=== PATIENT | female | born 1985 | race Caucasian/White ===

== ENCOUNTER → 2017-10-17 | Outpatient (CLI) | payer BC ==
[~2017-10-17] MED LIST: PRENTAB26 PO; PROG1INJ
== END | disposition home or self-care (01) ==
LOC: C.LAB1850 14:47
PROVIDERS: ATTEND Obstetrics & Gynecology
DX: O20.0 Threatened abortion (principal); Z3A.00 Weeks of gestation of pregnancy not specified

== ENCOUNTER → 2017-10-24 | Outpatient (CLI) | payer BC | END | disposition home or self-care (01) | LOC: C.LAB1850 09:36 | PROVIDERS: ATTEND Obstetrics & Gynecology | DX: O20.0 Threatened abortion (principal) ==

== ENCOUNTER → 2017-10-30 | Outpatient (CLI) | payer BC | END | disposition home or self-care (01) | LOC: C.LAB 12:59 | PROVIDERS: ATTEND Obstetrics & Gynecology | DX: O20.0 Threatened abortion (principal) ==

== ENCOUNTER → 2017-12-07 | Outpatient (CLI) | payer BC | END | disposition home or self-care (01) | LOC: C.PAPS 15:47 | PROVIDERS: ATTEND Obstetrics & Gynecology | DX: Z01.419 Encounter for gynecological examination (general) (routine) without abnormal findings (principal) ==

== ENCOUNTER → 2018-03-21 | Outpatient (CLI) | payer BC | END | disposition home or self-care (01) | LOC: C.LABSPEC 13:09 | PROVIDERS: ATTEND Obstetrics & Gynecology | DX: O09.211 Supervision of pregnancy with history of pre-term labor, first trimester (principal); Z3A.00 Weeks of gestation of pregnancy not specified ==

== ENCOUNTER → 2018-03-22 | Outpatient (CLI) | payer BC ==
[2018-03-22 12:21] LABS: BASO % 0.2 %; BASO ABS # 0.02 K/uL (0-0.2); EOS ABS # 0.08 K/uL (0-0.5); HEMATOCRIT 38.4 % (37-47); HEMOGLOBIN 12.6 g/dL (12.0-16.0); IG# 0.02 K/uL (0.00-0.02); LYMPH % 27.4 %; MEAN CELL VOLUME 86.7 fL (80-100); MEAN CORPUSCULAR HEMOGLOBIN 28.4 pg (25-34); MEAN CORPUSCULAR HGB CONC 32.8 g/dl (32-36); MEAN PLATELET VOLUME 9.9 fL (7.4-10.4); MONO % 7.2 %; MONO ABS # 0.58 K/uL (0.11-0.59); NEUT ABS # 5.12 K/uL (1.4-6.5); PLATELET COUNT 249 K/uL (130-400); RED CELL DISTRIBUTION WIDTH CV 14.4 % (11.5-14.5); RED CELL DISTRIBUTION WIDTH SD 45.6 fL (36.4-46.3); WHITE BLOOD COUNT 8.02 K/uL (4.8-10.8)
== END | disposition home or self-care (01) ==
LOC: C.LAB1850 11:36
PROVIDERS: ATTEND Obstetrics & Gynecology
DX: O09.211 Supervision of pregnancy with history of pre-term labor, first trimester (principal)

== ENCOUNTER 2018-04-09 | Emergency (ER) | payer BC ==
[~2018-04-09] VITALS: Ht 165.1 cm; Wt 100.3 kg
[2018-04-09 00:03] VITALS: TEMP 36.5; Ht 165.1 cm; Wt 100.3 kg
[2018-04-09] MEDS ORDERED: KETOROLAC TROMETHAMINE 30 MG/ML VIAL IV STA (00:28)
[2018-04-09 00:52] LABS: BASO % 0.2 %; BASO ABS # 0.02 K/uL (0-0.2); EOS % 0.7 %; EOS ABS # 0.08 K/uL (0-0.5); HEMATOCRIT 35.7 % (37-47); HEMOGLOBIN 12.1 g/dL (12.0-16.0); IG# 0.03 K/uL (0.00-0.02); LYMPH % 23.9 %; LYMPH ABS # 2.58 K/uL (1.2-3.4); MEAN CELL VOLUME 85.6 fL (80-100); MEAN CORPUSCULAR HGB CONC 33.9 g/dl (32-36); MEAN PLATELET VOLUME 9.6 fL (7.4-10.4); MONO % 5.1 %; MONO ABS # 0.55 K/uL (0.11-0.59); NEUT % 69.8 %; NEUT ABS # 7.54 K/uL (1.4-6.5); PLATELET COUNT 217 K/uL (130-400); RED CELL DISTRIBUTION WIDTH CV 14.1 % (11.5-14.5); RED CELL DISTRIBUTION WIDTH SD 43.9 fL (36.4-46.3)
[2018-04-09] MEDS ORDERED: OXYC-57 PO (01:06)
[2018-04-09 01:10] LABS: ALBUMIN 3.5 gm/dl (3.4-5.0); CALCIUM 8.9 mg/dl (8.5-10.1); CREATININE 0.71 mg/dl (0.60-1.20); POTASSIUM 3.6 mmol/L (3.5-5.1)
[2018-04-09 01:13] LABS: TOTAL PROTEIN 7.6 gm/dl (6.4-8.2)
--- NOTE | 2018-04-09 03:01 | EMERGENCY ROOM VISIT NOTE ---
History First contact with patient: 00:09 Chief Complaint: ABDOMINAL PAIN Stated Complaint: SHARP STOMACH PAINS-MOSTLY ON RIGHT SIDE Nursing Triage Summary: pt c/o abd pain started around noon, started around her belly button and then was on the right now it has radiated to the left side, with little nausea started cytotec on at 1600 and second dose tuesday at 1730, pretty sure passed everything on . but still continues to pass small clots but nothing major per pt History of Present Illness The patient is a 32 year old female who presents to the Emergency Room with complaints of abdominal pain. The patient reports that she has recently been treated with Cytotec for a miscarriage. 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 She has taken Cytotec in the past without difficulty. She states that she took the first dose of Cytotec 3 days ago and the second 2 days ago. This is the first time she has ever taken a second dose of it. She reports that yesterday around lunchtime, she developed pain around her umbilicus. She had a bowel movement but states that her pain worsened. The pain was in the right lower abdomen but is now in the left lower abdomen and spreads across her lower abdomen. She states this feels like an intense ovulation pain. She did pass a large amount of blood clots after the first dose of Cytotec, but states that her bleeding has slowed. She took oxycodone this morning but has not taken anything for pain since. She rates her discomfort a 4/10. She is supposed to call her [facility] on Tuesday to schedule follow-up. She denies urinary symptoms, fevers, nausea or vomiting. Review of Systems A complete 10 point review of systems was reviewed with the patient with pertinent positives and negatives as per history of present illness. All else were negative. Past Medical/Surgical History Medical Problems: (1) 24 weeks gestation of (2) Abdominal pain affecting (3) Complicated (4) Irregular uterine contractions (5) premature rupture of membranes (PPROM) with unknown onset of labor Social History Smoking Status: Never Smoker Alcohol Use: none Occupation Status: employed Current/Historical Medications Scheduled PRN Oxycodone/Acetaminophen 5MG/325MG (Percocet 5MG/325MG), 1 TAB PO BID PRN for Pain Physical Exam Vital Signs Date Time Temp Pulse Resp B/P (MAP) Pulse Ox O2 Delivery O2 Flow Rate FiO2 04/09/18 03:04 70 16 122/53 97 04/09/18 02:16 76 16 128/67 99 Room Air 04/09/18 00:03 36.5 85 18 148/88 99 Room Air Physical Exam VITALS: Vitals are noted on the nurse's note and reviewed by myself. Vital signs stable. GENERAL: This is a 32-year-old female, in no acute distress, nondiaphoretic, well-developed well-nourished. SKIN: The skin was without rashes. EYES: Pupils equal round and reactive to light and accommodation. MOUTH: Mucous membranes moist. HEART: Regular rate and rhythm without murmurs gallops or rubs. LUNGS: Clear to auscultation bilaterally without wheezes, rales or rhonchi. ABDOMEN: Positive bowel sounds x 4. Soft, nondistended. Mild tenderness to palpation across the lower abdomen. No guarding or rebound tenderness. NEURO: Patient was alert and oriented to person place and time. Medical Decision & Procedures ER Provider Diagnostic Interpretation: US PELVIC/ENDOVAG: The endometrium is not thickened, 1.2 cm. There is no abnormal vascularity. There is no intrauterine gestation. 9 mm hypoechoic area within the endometrium was not present on the prior scan and may represent a tiny blood clot. 1.6 cm thin-walled cystic lesion in the right adnexa was not present on the prior scan and may represent a paraovarian cyst. Small amount of free fluid. Considering nonspecific findings and patient's history, short interval sonographic follow-up is advised. Radiologist: Eran Wheeler MD Laboratory Results 04/09/18 00:40 Red Blood Count 4.17, Mean Corpuscular Volume 85.6, Mean Corpuscular Hemoglobin 29.0, Mean Corpuscular Hemoglobin Concent 33.9, Mean Platelet Volume 9.6, Neutrophils (%) (Auto) 69.8, Lymphocytes (%) (Auto) 23.9, Monocytes (%) (Auto) 5.1, Eosinophils (%) (Auto) 0.7, Basophils (%) (Auto) 0.2, Neutrophils # (Auto) 7.54, Lymphocytes # (Auto) 2.58, Monocytes # (Auto) 0.55, Eosinophils # (Auto) 0.08, Basophils # (Auto) 0.02 04/09/18 00:40 Test 04/09/18 00:40 04/09/18 02:15 White Blood Count 10.80 K/uL (4.8-10.8) Red Blood Count 4.17 M/uL (4.2-5.4) Hemoglobin 12.1 g/dL (12.0-16.0) Hematocrit 35.7 % (37-47) Mean Corpuscular Volume 85.6 fL (80-100) Mean Corpuscular Hemoglobin 29.0 pg (25-34) Mean Corpuscular Hemoglobin Concent 33.9 g/dl (32-36) Platelet Count 217 K/uL (130-400) Mean Platelet Volume 9.6 fL (7.4-10.4) Neutrophils (%) (Auto) 69.8 % Lymphocytes (%) (Auto) 23.9 % Monocytes (%) (Auto) 5.1 % Eosinophils (%) (Auto) 0.7 % Basophils (%) (Auto) 0.2 % Neutrophils # (Auto) 7.54 K/uL (1.4-6.5) Lymphocytes # (Auto) 2.58 K/uL (1.2-3.4) Monocytes # (Auto) 0.55 K/uL (0.11-0.59) Eosinophils # (Auto) 0.08 K/uL (0-0.5) Basophils # (Auto) 0.02 K/uL (0-0.2) RDW Standard Deviation 43.9 fL (36.4-46.3) RDW Coefficient of Variation 14.1 % (11.5-14.5) Immature Granulocyte % (Auto) 0.3 % Immature Granulocyte # (Auto) 0.03 K/uL (0.00-0.02) Anion Gap 6.0 mmol/L (3-11) Est Creatinine Clear Calc Drug Dose 133.5 ml/min Estimated GFR () 130.6 Estimated GFR (Non- 112.7 BUN/Creatinine Ratio 14.5 (10-20) Calcium Level 8.9 mg/dl (8.5-10.1) Total Bilirubin 0.3 mg/dl (0.2-1) Aspartate Amino Transf (AST/SGOT) 15 U/L (15-37) Alanine Aminotransferase (ALT/SGPT) 24 U/L (12-78) Alkaline Phosphatase 72 U/L (45-117) Total Protein 7.6 gm/dl (6.4-8.2) Albumin 3.5 gm/dl (3.4-5.0) Globulin 4.1 gm/dl (2.5-4.0) Albumin/Globulin Ratio 0.9 (0.9-2) Urine Color YELLOW Urine Appearance CLEAR (CLEAR) Urine pH 5.0 (4.5-7.5) Urine Specific [place] 1.019 (1.000-1.030) Urine Protein NEG (NEG) Urine Glucose (UA) NEG (NEG) Urine Ketones NEG (NEG) Urine Occult Blood 3+ (NEG) Urine Nitrite NEG (NEG) Urine Bilirubin NEG (NEG) Urine Urobilinogen NEG (NEG) Urine Leukocyte Esterase TRACE (NEG) Urine WBC (Auto) 1-5 /hpf (0-5) Urine RBC (Auto) >30 /hpf (0-4) Urine Hyaline Casts (Auto) 1-5 /lpf (0-5) Urine Epithelial Cells (Auto) 10-20 /lpf (0-5) Urine Bacteria (Auto) NEG (NEG) Medications Administered Medications (Trade) Dose Ordered Sig/Anabel Route Start Time Stop Time Status Last Admin Dose Admin Ketorolac Tromethamine (Toradol Inj) 30 mg NOW STAT IV 04/09/18 00:28 04/09/18 00:30 DC 04/09/18 00:46 30 MG ED Course The patient was evaluated as above. Labs were drawn and IV access was obtained. Patient was medicated with 30 mg Toradol IV. Pelvic ultrasound was performed and read by radiology as above. Patient was reevaluated and was feeling slightly more comfortable. Findings were discussed with the patient. Discharge instructions were reviewed with the patient. The patient verbalized understanding of my assessment and treatment plan and was discharged home in good condition. Medical Decision Differential diagnosis includes ovarian cyst, ovarian torsion, retained products of conception, endometritis, appendicitis, gastroenteritis, UTI, among others. The patient is a 32-year-old female who presents today complaining of lower abdominal pain. Labs revealed no leukocytosis, anemia or concerning electrolyte abilities. Urinalysis was not suggestive of infection. Pelvic ultrasound was performed and does show a small right ovarian cyst and no other acute findings. I feel the patient's pain is most likely secondary to her Cytotec use. She was given Toradol with some relief of her pain. She is supposed to follow-up with [facility] this week. I advised her to call for appointment. The patient's case was reviewed with Dr. Inman, ED attending physician, who agreed with my assessment and treatment plan. Based on the patient's presentation and work up, I feel the patient is stable for outpatient treatment. The patient was educated to return to the emergency department for any worsening of their current condition or new/concerning symptoms. She will follow up with [facility]. Medication Reconcilliation Current Medication List: was personally reviewed by me Blood Pressure Screening Patient's blood pressure: Normal blood pressure Impression Primary Impression: Lower abdominal pain Departure Information Dispostion Home / Self-Care Condition GOOD Referrals No Doctor, Assigned (PCP) Roosevelt Garcia M.D. Patient Instructions [facility] Additional Instructions You have been treated in the Emergency Department your Abdominal Pain. Laboratory results and imaging studies have ruled out any emergent causes for your abdominal pain which would warrant admission or surgery. For pain control, you can use the following [id number] medicines (if >12 yo): - Regular strength (325mg/tab) Tylenol (acetaminophen) 2 tabs every 4-6 hours as needed. Do not exceed 12 tablets in a 24 hour period. Avoid taking more than 4 grams (4000 mg) of Tylenol per day. This includes any other sources of acetaminophen you may take on a regular basis. - Regular strength (200 mg/tab) Advil (ibuprofen) 3-4 tabs every 6 hours as needed. Do not exceed a dose of 3200 mg per day. Contact her [facility] on Tuesday to schedule follow-up. Return to the emergency department if your symptoms persist despite treatment plan outlined above or if the following symptoms occur: Worsening pain, vomiting , fevers, or any other new/concerning symptoms.
[2018-04-09 03:04] VITALS: BP 122/53; PULSE 70; O2SAT 97
--- NOTE | 2018-04-09 08:00 | DIAGNOSTIC IMAGING REPORT ---
PELVIC ULTRASOUND, TRANSABDOMINAL AND TRANSVAGINAL HISTORY: pelvic pain, cramping, recently took cytotec for miscarriage COMPARISON: Outside hospital pelvic ultrasound 04/05/2018. FINDINGS: The endometrium measures 1.2 cm in thickness. The intrauterine gestational sac seen on the prior study is no longer visualized. There is a 7 mm indeterminate hypoechoic nodule within the left side of the endometrium. 1.6 cm thick-walled cyst within the right adnexa which is not present on the prior scan. This appears attached to the right ovary and therefore is unlikely to represent an adnexal mass/ectopic . Normal left ovary. Trace pelvic fluid. IMPRESSION: 1. The intrauterine gestational sac seen on the previous study is no longer identified suggesting recent spontaneous . There is a 7 mm hypoechoic area remaining within the left side of the endometrium which is indeterminate. This did not demonstrate abnormal vascularity and may represent a small amount of hemorrhage. Small amount of retained products of conception is considered less likely but not entirely excluded. Short-term pelvic ultrasound is recommended to ensure resolution. 2. A new 1.6 cm thick-walled cystic lesion within the right adnexa which appears to be attached to the right ovary and therefore favors a complex cyst. Follow-up serial beta hCG and 2 to 3 day pelvic ultrasound is recommended to ensure resolution of this finding.. Electronically signed by: Lit Sorot M.D. 04/09/2018 7:59 AM Dictated Date/Time: 04/09/2018 7:53 AM
== END 2018-04-09 03:05 | disposition home or self-care (01) ==
LOC: C.EDB 00:01 → C.EDA 03:05
DX: R10.30 Lower abdominal pain, unspecified (principal); Z87.59 Personal history of other complications of pregnancy, childbirth and the puerperium

== ENCOUNTER → 2018-04-14 | Outpatient (CLI) | payer BC ==
[~2018-04-14] MED LIST changes: +OXYC-57 PO; -PRENTAB26 PO; -PROG1INJ
== END | disposition home or self-care (01) ==
LOC: C.LAB1850 16:39
PROVIDERS: ATTEND Obstetrics & Gynecology
DX: O02.1 Missed abortion (principal)